=== PATIENT | male | born 1985 | race Hispanic/Latino ===

== ENCOUNTER 2018-05-20 08:56 | Emergency (ER) | payer SELFPAY ==
[2018-05-20 09:31] LABS: INR-International Normal Ratio 1.7; Prothrombin Time 19.6 SEC (12.0-14.7)
[2018-05-20 09:32] LABS: PTT 49.2 SEC (22.9-36.1)
[2018-05-20 09:38] LABS: ALT (SGPT) 722 U/L (8-55); AST (SGOT) 838 U/L (5-34); Alkaline Phosphatase 72 U/L (40-150); Anion Gap 41 mmol/L (10-20); BUN (Urea Nitrogen) 11 mg/dL (8.9-20.6); Bilirubin, Total 0.2 mg/dL (0.2-1.2); Calc. Creatinine Clearance 0 mL/min (70-130); Carbon Dioxide 14 mmol/L (22-29); Chloride 101 mmol/L (98-107); Estimated GFR-MDRD 32; Globulin 1.5 g/dL (2.4-3.5); Protein, Total 3.5 g/dL (6.0-8.3); Sodium 148 mmol/L (136-145)
[2018-05-20 09:41] LABS: Calcium 14.7 mg/dL (7.8-10.44); Glucose 798 mg/dL (70-105); Potassium 8.2 mmol/L (3.5-5.1)
[2018-05-20 09:43] LABS: Band 11 % (5-11); Eosinophils 3 % (0-10); Hemoglobin 10.1 g/dL (14.0-18.0); Lymphocytes 62 % (21-51); MDiff Complete? YES; Mean Corpuscular HGB CONC 31.3 g/dL (32.0-36.0); Mean Corpuscular Hemoglobin 30.7 pg (27.0-31.0); Mean Corpuscular Volume 98.2 fL (78.0-98.0); Mean Platelet Volume 8.4 fL (7.4-10.4); Monocytes 4 % (0-10); Neutrophil 20 % (42-75); Nucleated RBC 1 % (0); Platelet Count 120 thou/uL (130-400); Platelet Morphology Comment Appears Decreased; RBC Distribution Width 12.4 % (11.5-14.5); White Blood Cell (WBC) Count 18.9 thou/uL (4.8-10.8)
[2018-05-20] MEDS ORDERED: Calcium Chloride 1 GM/10 ML Abboject SYRINGE ONE (17:00)
[2018-05-20] MEDS ORDERED: EPINEPHrine 1 MG/10 ML Abboject SYRINGE ONE (17:00)
== END 2018-05-20 09:33 | disposition expired ==
LOC: ERS 08:56 → EDBD 08:56 → ERS 09:33
DX: I46.9 Cardiac arrest, cause unspecified (principal); S51.812A Laceration without foreign body of left forearm, initial encounter; S01.81XA Laceration without foreign body of other part of head, initial encounter; R58 Hemorrhage, not elsewhere classified
CPT/HCPCS: 36430; 36556; 51702; 80053; 82150; 85025; 85610; 85730; 86850; 86900; 86901; 92950; 96374; 96375; G0390; J0171; P9016; P9035; P9048; P9059